=== PATIENT | female | born 1980 | race Caucasian/White ===

== ENCOUNTER 2018-07-30 23:29 | Emergency (ER) | payer MEDICAID, SELFPAY ==
[2018-07-30 23:30] VITALS: BP 111/58; PULSE 79; RESP 18; TEMP 36.9; O2SAT 99; BMI 20.7
--- NOTE | 2018-07-30 23:43 | ED.DCSUM_ITS ---
- ER Visit Summary Date of Service: 07/30/18 Chief Complaint: [] Right neck pain History of Present Illness: The patient is a 38 F stated she was playing with her significant other and their children on the bed and rolled over and felt some discomfort in her right trapezius. It is gotten worse and since 7 PM. She tried one Aleve with minimal relief of symptoms. She feels like she has whiplash in her right side of her neck. Hurts to move her left neck laterally. Sometimes she will get some discomfort in her right arm from the pain if she moves her head too quickly Physical Examination: [] Vital signs reviewed General: Well-nourished well-developed Head: Normocephalic atraumatic Eyes: Pupils equal round and reactive to light extraocular movements intact ENT: TMs clear no hemotympanum no trauma Neck: No midline tenderness step-off or deformity. Tenderness in the right trapezius with no swelling or deformity. Decreased range of motion of the neck in all grove secondary to pain. Right arm exam normal Cardiovascular: Regular rate rhythm no murmurs normal S1-S2 Respiratory: No distress clear to auscultation bilaterally chest nontender Abdomen: Soft nontender nondistended normal bowel sounds no masses Back: Nontender no CVA tenderness Extremities: Nontender active range of motion ?4 extremities no trauma Skin: Normal color no trauma Neuro alert oriented cranial nerves II through XII intact normal strength sensation reflexes Test Results: [] Emergency Department Course and Treatment: [] This time the patient strained her neck. She is going to get a ride home I gave her a shot of Toradol and morphine. At this time appears to be more of a trapezius strain. I will hold off on giving her steroids. She will use Aleve at home as well as ice and will be given Flexeril Treatment Plan: [] Disposition: [] Impression: [] Right trapezius strain This note was generated with [employer] dictation software. It may contain incorrect words, spelling, and punctuation that were not noted in review of the chart prior to signing ED Disposition - Plan for ED Patient: Chief Complaint: Other, Pain/Inj Prescriptions: Cyclobenzaprine [Flexeril] 10 mg PO TID PRN #20 tab PRN Reason: Muscle Spasm Referrals: Abdoulaye Stone DO [Primary Care Provider] -
--- NOTE | 2018-07-30 23:43 | ED.DEP ---
ED Disposition - Plan for ED Patient: Disposition: Home or Assisted Living Chief Complaint: Other, Pain/Inj Instructions: ED Sprain Strain Neck Prescriptions: Cyclobenzaprine [Flexeril] 10 mg PO TID PRN #20 tab PRN Reason: Muscle Spasm Referrals: Abdoulaye Stone DO [Primary Care Provider] -
[2018-07-30] MEDS: Ketorolac 60 MG/2 ML Vial IM (23:58)
[2018-07-30] MEDS: Morphine 4 MG/ML Syringe IM (23:58)
[2018-07-31 00:26] VITALS: RESP 18; O2SAT 100
== END 2018-07-31 00:38 | disposition home or self-care (01) ==
LOC: ED 23:58
PROVIDERS: Emergency Provider Emergency Medicine; Family Provider Student in an Organized Health Care Education/Training Program; PCP Student in an Organized Health Care Education/Training Program
DX: S46.811A Strain of other muscles, fascia and tendons at shoulder and upper arm level, right arm, initial encounter (principal); X58.XXXA Exposure to other specified factors, initial encounter; Y93.9 Activity, unspecified; Y92.9 Unspecified place or not applicable
CPT/HCPCS: 96372; 99282